=== PATIENT | male | born 1955 | race Caucasian/White ===

== ENCOUNTER 2017-04-16 07:53 | Outpatient (CLI) | payer BC ==
--- NOTE | 2017-04-16 09:42 | MRI ---
MRI LUMBAR SPINE WITHOUT CONTRAST: Date: 04/16/17 COMPARISON: 12/09/14. HISTORY: Back injury 2 years ago with continued pain in the back extending down the right leg. 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 TECHNIQUE: Multiplanar, multisequence MR images were obtained of the lumbar spine without contrast. FINDINGS: There is generalized disc desiccation and loss of intervertebral disc space height. This has slightly progressed compared to the prior examination. The vertebral bodies demonstrate normal height and ali gnment without fracture or subluxation. The conus medullaris terminates normally at T12-L1. The preve rtebral and paraspinal soft tissues are unremarkable. T12-L1: Unremarkable. L1-2: A small disc osteophyte complex is seen. No posterior facet arthrosis. No central canal stenosis. No neural foraminal stenosis. L2-3: A small disc osteophyte complex is seen. No posterior facet arthrosis. Mild central canal stenosis. M ild bilateral neural foraminal stenosis. L3-4: A small disc osteophyte complex is seen. No posterior facet arthrosis. Mild central canal stenosis. M ild bilateral neural foraminal stenosis. The previously seen enlargement of the right L3 nerve root i s no longer present. L4-5: A small generalized concentric disc bulge is seen. No posterior facet arthrosis. No central canal rafal nosis. Mild bilateral neural foraminal stenosis. L5-S1: A small disc osteophyte complex is seen. Mild to moderate bilateral posterior facet arthrosis. No jerome tral canal stenosis. Moderate bilateral neural foraminal stenosis. IMPRESSION: 1. Degenerative changes of the lumbar spine as above. The changes are minimal compared to the prior examination. 2. There was previous enlargement of the right L3 nerve root. This has resolved and may have represe nted a focal neuritis of this nerve root. POS: [facility]
== END 2017-04-16 07:54 | disposition home or self-care (01) ==
LOC: SCSMRI 07:53
PROVIDERS: ATTEND Psychiatry & Neurology Neurology
DX: G20 Parkinson's disease (principal); M47.896 Other spondylosis, lumbar region
CPT/HCPCS: 72148